=== PATIENT | male | born 1965 | race Caucasian/White ===

== ENCOUNTER 2021-04-11 13:28 | Day surgery (SDC) | payer BC ==
[~2021-04-11] VITALS: Ht 172.7 cm; Wt 106.8 kg
[~2021-04-11 13:28] MED LIST: FLEXERIL 1010 MG/TAB PO; NIASPAN1000 MG PO; PERCOCET 325 MG1 TA2 PO
[2021-04-11] MEDS ORDERED: COZAAR100 MG PO (13:56)
[2021-04-11] MEDS ORDERED: NORVASC 5MG5 MG/TAB PO (13:56)
[2021-04-11] MEDS ORDERED: FLOMAX 0.40.4 MG/CAP PO (13:57)
[2021-04-11 13:59] VITALS: BP 158/88; PULSE 85; TEMP 98.3
[2021-04-11 16:50] VITALS: BP 137/82; PULSE 70
--- NOTE | 2021-04-11 16:50 | NUR ---
Patient returns to room 5 per bed and is awake and alert. Temp 97.4 and room air sats 95%. IV fluids infusing. States has urgency to urinate. Medicated with AZO. Drinking water. Denies nausea.
[2021-04-11 17:05] VITALS: BP 129/78; PULSE 72
--- NOTE | 2021-04-11 17:05 | NUR ---
Tolerated water well. Continues to deny nausea. Offered snack. States they are getting something to eat afte discharge. Patient has voided x3 in PACU prior to coming to room. Spouse at side.
[2021-04-11 17:12] VITALS: TEMP 98.6
[2021-04-11 17:20] VITALS: BP 135/75; PULSE 72
--- NOTE | 2021-04-11 17:20 | NUR ---
IV discontinued and site is free of redness. Assisted up to the bathroom and gait is steady. Voids blood tinged urine and passes few clots. Reinforced need to force fluids.
--- NOTE | 2021-04-11 17:35 | NUR ---
Dismissal instructions given and voices understanding of these.
--- NOTE | 2021-04-11 17:37 | NUR ---
Patient dismissed to home driven by spouse and taken to the emergency room entrance per wheelchair and assisted into vehicle.
== END 2021-04-11 17:37 | disposition home or self-care (01) ==
LOC: SDCO 13:28
DX: C67.9 Malignant neoplasm of bladder, unspecified (principal); R93.41 Abnormal radiologic findings on diagnostic imaging of renal pelvis, ureter, or bladder; I10 Essential (primary) hypertension; N40.0 Benign prostatic hyperplasia without lower urinary tract symptoms; E78.00 Pure hypercholesterolemia, unspecified; E78.5 Hyperlipidemia, unspecified; Z79.899 Other long term (current) drug therapy; Z85.46 Personal history of malignant neoplasm of prostate; Z90.89 Acquired absence of other organs
CPT/HCPCS: J0690; J1100; J2405; J2704; J3010; J7120

== ENCOUNTER → 2021-04-25 | Outpatient (CLI) | payer BC ==
[~2021-04-25] MED LIST changes: +COZAAR100 MG PO; +FLOMAX 0.40.4 MG/CAP PO; +NORVASC 5MG5 MG/TAB PO
== END ==
LOC: COL.RAD 14:08
DX: C67.2 Malignant neoplasm of lateral wall of bladder (principal); N40.0 Benign prostatic hyperplasia without lower urinary tract symptoms
CPT/HCPCS: Q9967

== ENCOUNTER → 2021-05-02 | Outpatient (CLI) | payer BC ==
[2021-05-02] VITALS (9 sets, daily range): BP systolic 125–134; BP diastolic 70–95; PULSE 70–86; TEMP 98.8
[~2021-05-02] VITALS: Ht 172.7 cm; Wt 105.2 kg
[~2021-05-02] MED LIST changes: +VITAMIN FLUSH-F1 CAP PO
[2021-05-02 07:52] LABS: INR 1.1 (0.8-3.0); PROTHROMBIN TIME 12.5 SECONDS (9.7-12.8)
--- NOTE | 2021-05-02 08:05 | NUR ---
pt positioned in CT scanner, Dr Stewart in room talking with pt
--- NOTE | 2021-05-02 08:17 | NUR ---
liver samples obtained from Dr Stewart put in formulin. pressure applied over site and bandaid over site, pt back to rad holding area via w/c, no c/o pain at this time
== END ==
LOC: COL.RAD 06:49
PROVIDERS: Urology
DX: R93.41 Abnormal radiologic findings on diagnostic imaging of renal pelvis, ureter, or bladder (principal)
CPT/HCPCS: 32106

== ENCOUNTER 2021-05-09 06:54 | Day surgery (SDC) | payer BC ==
[~2021-05-09] VITALS: Ht 172.7 cm; Wt 105.4 kg
[~2021-05-09 06:54] MED LIST changes: -VITAMIN FLUSH-F1 CAP PO
[2021-05-09 07:21] VITALS: BP 137/84; PULSE 82; TEMP 97.7
[2021-05-09] MEDS ORDERED: VITAMIN FLUSH-F1 CAP PO (07:37)
[2021-05-09 10:30] VITALS: BP 129/86; PULSE 69; TEMP 97.6
--- NOTE | 2021-05-09 10:30 | NUR ---
The patient arrived back to [facility] from the recovery room at this time. The patient appears alert and oriented and denies any pain or nausea at this tme. Post operative vital signs were started at this time. The patient denies any significant pain or nausea at this time. The patient was given some ice water and denies wanting anything further to eat or drink at this time. The patient's is at his bedside at this time. Call light is within reach. Will continue to monitor the patient.
[2021-05-09 10:45] VITALS: BP 124/81; PULSE 64
--- NOTE | 2021-05-09 10:45 | NUR ---
The patient ambulated to the bathroom with the stand by assistane of one nurse and appeared to tolerate the activity well. The patient voided without difficulty and denies any clots being present. The patient denies wanting anything further to eat or drink at this time.
[2021-05-09 10:53] VITALS: TEMP 97.9
--- NOTE | 2021-05-09 11:00 | NUR ---
The patient voices a desire to be discharged home. Discharge instructions were reviewed with the patient and his at this time. They both verblaized understanding and have no questions for the nurse at this time. The patient's IV to his right hand was removed and a pressure dressing was applied to the site. The nurse instructed the patient to get dressed for home at this time.
[2021-05-09 11:05] VITALS: BP 121/69; PULSE 63
--- NOTE | 2021-05-09 11:15 | NUR ---
The patient was escorted out via wheelchair to a private vehicle by JOHNNY Wade. The patient's belongings and discharge paperwork were sent with him. The patient's is present to drive him home.
== END 2021-05-09 11:15 | disposition home or self-care (01) ==
LOC: SDCO 06:54
DX: C67.2 Malignant neoplasm of lateral wall of bladder (principal); C61 Malignant neoplasm of prostate; I10 Essential (primary) hypertension; R59.1 Generalized enlarged lymph nodes; E78.00 Pure hypercholesterolemia, unspecified; E78.5 Hyperlipidemia, unspecified; Z79.899 Other long term (current) drug therapy; Z85.46 Personal history of malignant neoplasm of prostate
CPT/HCPCS: J0690; J1100; J1170; J2405; J2704; J3010

== ENCOUNTER → 2021-07-19 | Outpatient (CLI) | payer BC ==
[~2021-07-19] MED LIST changes: +VITAMIN FLUSH-F1 CAP PO
== END ==
LOC: COL.RAD 09:26
DX: R13.10 Dysphagia, unspecified (principal)

== ENCOUNTER 2021-08-18 13:03 | Day surgery (SDC) | payer BC ==
[~2021-08-18] VITALS: Ht 172.7 cm; Wt 108.6 kg
[2021-08-18 13:44] VITALS: BP 131/94; PULSE 80; TEMP 98.1
[2021-08-18 14:10] VITALS: BP 131/84; PULSE 83; TEMP 98.1
--- NOTE | 2021-08-18 14:10 | NUR ---
Pt arrived from endo suite, drowsy but oriented. Verbal report obtained. Pepsi provided, Sprite for his . VSS. Call sweeney is within reach at side table.
[2021-08-18 14:25] VITALS: BP 115/80; PULSE 84
--- NOTE | 2021-08-18 14:25 | NUR ---
VSS. Pt expressed desire to be discharged. Pt requested buttered toast. Denies nausea. Call sweeney remains within reach.
[2021-08-18 14:40] VITALS: BP 120/82; PULSE 77
--- NOTE | 2021-08-18 14:40 | NUR ---
VSS. Pt has finished his toast. Continues to deny nausea. No vomiting. Call sweeney remains within reach.
--- NOTE | 2021-08-18 14:55 | NUR ---
IV discontinued. Catheter tip intact. Pressure bandage applied. No swelling or redness noted. DC instructions and educational material was reviewed. Pt denied questions and concerns.
--- NOTE | 2021-08-18 15:05 | NUR ---
Pt dismissed from endo via wheelchair to the pt entrence by JOHNNY Nunez. Pt has DC packet in hand and the pt has his personal belongings. Pt was transferred into the care of his , who is present to drive.
== END 2021-08-18 15:10 | disposition home or self-care (01) ==
LOC: SDCO 13:03
DX: K22.2 Esophageal obstruction (principal); K21.00 Gastro-esophageal reflux disease with esophagitis, without bleeding; K29.30 Chronic superficial gastritis without bleeding; I10 Essential (primary) hypertension; Z79.899 Other long term (current) drug therapy; Z87.891 Personal history of nicotine dependence
CPT/HCPCS: C1726; J2704; J7120

== ENCOUNTER 2021-11-10 05:26 | Day surgery (SDC) | payer BC ==
[~2021-11-10] VITALS: Ht 172.7 cm; Wt 107.8 kg
[2021-11-10] VITALS (10 sets, daily range): BP systolic 95–137; BP diastolic 56–86; PULSE 72–108; TEMP 97.7–99.3
[~2021-11-10 05:26] MED LIST changes: -NORVASC 5MG5 MG/TAB PO; +TWYNSTA PO
[2021-11-10] MEDS ORDERED: MICARDIS40 MG PO (06:49)
--- NOTE | 2021-11-10 14:00 | NUR ---
PT ARRIVED TO ROOM FROM PACU @ 1215, @ BEDSIDE. PT IS DROWSY, STATES THAT HE HAS 9/10 PAIN IN HIS BILATERAL SHOULDERS, QUICKLY FALLS ASLEEP AGAIN, SNORES. O2 ON @ 4L NC. SCDS ON BILATERAL LEGS. IVF INFUSING INTO LEFT WRIST. BORJA CATHTER DRAINING DEPENDENTLY, URINE IS TEA COLORED/REDDISH WITH CLOTS SEEN IN TUBING. 6 ABDOMINAL INCISION SITES ARE WELL APPROXIMATED ET LITERATURE TEACHER.
--- NOTE | 2021-11-10 18:00 | NUR ---
PT IS A&O X3, STATES THAT PAIN IS MUCH IMPROVED, RATES ABDOMINAL ET SHOULDER PAIN 2/10. PT HAS AMBULATED IN HALLWAY X2, TOLERATES WELL WITH A STEADY GAIT. IVF CONTINUES TO INFUSE. PT HAS BEEN SITTING UP IN BED TO EAT DINNER, ALSO TOLERATED WELL, DENIES ANY NAUSEA, ENCOURAGED TO DRINK WATER ET CHEW GUM, VEBRALIZES UNDERSTANDING.
--- NOTE | 2021-11-10 21:00 | NUR ---
PT IN BED. HAS WALKED IN HALLWAY WITH STAFF. BORJA TO BSD WITH YELLOW URINE. PT DRINKING FLUIDS WELL. HAS IVF INFUSING TO LEFT WRIST WITHOUT REDNESS OR SWELLING. ABD LAP SITES X5 WITH SMALL INCISION, ALL GLUED AND DRY. PT DENIES ABD PAIN. HAS PASSED FLATUS. HS MEDS WERE GIVEN.
--- NOTE | 2021-11-10 23:00 | NUR ---
PT WITH SNORING RESPIRATIONS, NEW BAG IVF HUNG AND IV ANTIBIOTIC GIVEN.
[2021-11-11 00:02] VITALS: BP 136/63; PULSE 89; TEMP 98.5
--- NOTE | 2021-11-11 00:33 | NUR ---
COMPLAINING OF LEFT SHOULDER PAIN, AMBULATING IN HALLWAY WITH STAFF, ENCOURAGED TO SIT IN CHAIR AT BEDSIDE.
--- NOTE | 2021-11-11 01:03 | NUR ---
WARM BLANKET APPLIED TO LEFT SHOULDER. MEDICATED WITH OXYCODONE 5MG PO AT THIS TIME. PT STANDING AT BEDSIDE WITH ARM STRETCHED OVER HIS HEAD FOR COMFORT.
--- NOTE | 2021-11-11 03:00 | NUR ---
PT REPORTS LEFT SHOULDER PAIN IS "TOLERABLE". SITTING IN CHAIR AT BEDSIDE.
[2021-11-11 04:19] VITALS: BP 107/56; PULSE 86; TEMP 98.3
[2021-11-11 07:56] VITALS: BP 128/63; PULSE 89; TEMP 99
[2021-11-11 08:37] LABS: HEMOGLOBIN 13.5 g/dl (13.5-18.0)
[2021-11-11 08:53] LABS: CALCIUM 8.7 mg/dL (8.4-10.2); CREATININE, serum 0.88 mg/dL (0.72-1.25); POTASSIUM 3.9 mmol/L (3.5-4.5)
--- NOTE | 2021-11-11 11:39 | NUR ---
Initial visit; Patient thanked [employer] Service Manager for looking in on him and offering God's blessings. Patient's is very pleasant and they both asked that [employer] Dietary Service Manager keep Williams in her prayers. Kosher Dietary Service Manager will do so and wished them well.
--- NOTE | 2021-11-11 12:31 | NUR ---
PT DISCHARGED TO HOME WITH SPOUSE @ 1220, AMBULATED TO PRIVATE CAR WITH THIS NURSE ET SPOUSE. PT HAS AMBULATED NUMEROUS TIMES, TOLERATES WELL. PT STATES THAT ABDOMINAL PAIN IS VERY MILD BUT HAS HAD MORE PAIN IN HIS LEFT SHOULDER. ROXICODONE ADMINISTERED. PT WILL GO HOME WITH BORJA CATHETER, HAS F/U APPOINTMENT ALREADY MADE TO HAVE IT TAKEN OUT. PT ET GIVEN SUPPLIES ET INSTRUCTIONS ON CARING FOR THE CATHETER, DEMONSTRATE UNDERSTANDING, DENY QUESTIONS.
== END 2021-11-11 12:20 | disposition home or self-care (01) ==
LOC: SDCO 05:26 → SURG 12:15 → SDCO 11-11 12:20
PROVIDERS: Urology
DX: C61 Malignant neoplasm of prostate (principal); C67.9 Malignant neoplasm of bladder, unspecified
CPT/HCPCS: OP; A4314; A9284; J0690; J1100; J1885; J2405; J3010; J7120